=== PATIENT | female | born 1975 | race African-American/Black ===

== ENCOUNTER 2016-12-12 13:33 | Emergency (ER) | payer OTHER ==
[2016-12-12 13:37] VITALS: BP 138/81; PULSE 81; TEMP 98.2; BMI 26.6
--- NOTE | 2016-12-12 14:18 | PDOC ---
History of Present Illness - General History Source: Patient Exam Limitations: No Limitations - History of Present Illness Initial Comments: 12/12/16 14:24 Patient is a 41 year old female, who presents with a laceration to the left index finger s/p cutting meat and accidently cutting her finger. Pt reports initially her finger was numb, but now she feel some throbbing. She denies any fever, chills, or dizziness. Pt does not think she hit a bone with the knife. Allergies: Dexlansoprazole <Neelam Vega - Last Filed: 12/12/16 16:23> - General History Source: Patient Exam Limitations: No Limitations <Kaleigh Jean Baptiste - Last Filed: 12/12/16 17:26> - General Chief Complaint: Injury Stated Complaint: LACERATION Past History <Neelam Vega - Last Filed: 12/12/16 16:23> - Past Medical History Anemia: No Asthma: No Cancer: No Cardiac Disorders: No CVA: No COPD: No CHF: No GI Disorders: Yes (abd pain) Disorders: No HTN: No Hypercholesterolemia: No Liver Disease: No Seizures: No Thyroid Disease: No - Surgical History Abdominal Surgery: No Appendectomy: No Cardiac Surgery: No Cholecystectomy: No Lung Surgery: No Neurologic Surgery: No Orthopedic Surgery: No - Psycho/Social/Smoking Cessation Hx Suicidal Ideation: No Smoking History: Never smoked Information on smoking cessation initiated: No Hx Alcohol Use: No Drug/Substance Use Hx: No Substance Use Type: None <Kaleigh Jean Baptiste - Last Filed: 12/12/16 17:26> - Past Medical History Allergies/Adverse Reactions: Allergies Allergy/AdvReac Type Severity Reaction Status Date / Time dexlansoprazole Allergy Mild Rash Verified 12/12/16 13:37 [From Dexilant] Home Medications: Ambulatory Orders Folic Acid - 1 tab PO DAILY 05/20/12 Multivitamin [Multi-Day Vitamins] 1 each PO DAILY 05/20/12 Brimonidine Tartrate [Alphagan 0.15% -] 1 ml OD TID 05/21/12 Cyclopentolate 1% Eye Drops [Cyclogyl 1% Eye Drops -] 2 drop OD TID 05/21/12 Dorzolamide HCl [Trusopt 2% -] 1 drop OD BID 05/21/12 Latanoprost 0.005% Eye Drops [Xalatan 0.005% Eye Drops -] 1 drop OU HS 05/21/12 Review of Systems - Review of Systems Able to Perform ROS?: Yes Integumentary: Yes: Symptoms Reported, See HPI, Other (laceration to left index finger) Neurological: Yes: Symptoms reported, See HPI, Other (Some numbness and throbbing s/p laceration to left index finger) All Other Systems: Reviewed and Negative <Neelam Vega - Last Filed: 12/12/16 16:23> *Physical Exam - Vital Signs Last Vital Signs Temp Pulse Resp BP Pulse Ox 98.2 F 81 18 138/81 98 12/12/16 13:35 12/12/16 13:35 12/12/16 13:35 12/12/16 13:35 12/12/16 13:35 - Physical Exam Integumentary: positive: Other (2 cm laceration to left 2nd finger.). negative : Erythema, Mottled, Pale, Cold, Swelling, Ecchymosis <Neelam Vega - Last Filed: 12/12/16 16:23> - Vital Signs Last Vital Signs Temp Pulse Resp BP Pulse Ox 98.2 F 81 18 138/81 98 12/12/16 13:35 12/12/16 13:35 12/12/16 13:35 12/12/16 13:35 12/12/16 13:35 - Physical Exam General Appearance: Yes: Nourished, Appropriately Dressed, Apparent Distress, Mild Distress Extremity: positive: Normal Capillary Refill, Normal Range of Motion (strong flexion and extension against resistance, sensation intact distal to injury. Has a 2 cm laceration one half circumferentially distal phalanx of left second digit.), Tender. negative: Normal Inspection Integumentary: positive: Normal Color Neurologic: positive: real estate administrator II-XII NML intact, Fully Oriented, Alert, Normal Mood/ Affect, Normal Response, Motor Strength 5/5 <Kaleigh Jean Baptiste - Last Filed: 12/12/16 17:26> Procedures - Laceration/Wound Repair Left 2nd digit Wound Explored: clean, no foreign body present Wound Repaired With: Sutures Suture Size/Type: 5:0 Number of Sutures: 9 (digital block) Sterile Dressing Applied: Yes Splint Applied: Yes <Neelam Vega - Last Filed: 12/12/16 16:23> ED Treatment Course - RADIOLOGY Radiology Studies Ordered: Category Date Time Status FINGER(S) LEFT [RAD] Stat Radiology 12/12/16 14:17 Ordered <Kaleigh Jean Baptiste - Last Filed: 12/12/16 17:26> Progress Note - Progress Note Progress Note: X-ray negative for bone involvement with laceration. Finger laceration, repaired this/diphtheria/pertussis booster updated today <Kaleigh Jean Baptiste - Last Filed: 12/12/16 17:26> *DC/Admit/Observation/Transfer - Attestations Scribe Attestion: 12/12/16 14:28 Documentation prepared by Neelam Vega, acting as center medical director for Kaleigh Jean Baptiste NP <Neelam Vega - Last Filed: 12/12/16 16:23> - Discharge Dispostion Admit: No <Kaleigh Jean Baptiste - Last Filed: 12/12/16 17:26> Diagnosis at time of Disposition: Finger laceration Qualifiers: Encounter type: initial encounter Finger: index finger Damage to nail status: without damage Foreign body presence: without foreign body Laterality: left Qualified Code(s): S61.211A - Laceration without foreign body of left index finger without damage to nail, initial encounter - Discharge Dispostion Disposition: HOME Condition at time of disposition: Stable - Referrals Referrals: Jeremi Omalley MD [Primary Care Provider] - - Patient Instructions Additional Instructions: Rest, elevate, avoid strenuous activity or heavy lifting until sutures are removed Leave dressing on for the next 24 hours, Then may remove dressing gently and wash area with soap and water. Reapply bacitracin ointment and dressing daily for the next 5 days On day #6 keep the wound protected and cover as needed until sutures are removed allowing wound to start to dry May use Tylenol or Motrin for pain relief Suture removal in : 7-10 Days Tetanus/diphtheria/pertussis booster was updated today Use 1/2-1 tablet of Percocet every 6 hours as needed for severe pain otherwise Motrin will resolve mild to moderate pain
[2016-12-12] MEDS ORDERED: OXYCODONE/APAP 5/325MG COMBO TABLET ONE (14:53)
[2016-12-12] MEDS ORDERED: OXYCODONE/APAP 5/325MG COMBO TABLET PO ONE (14:56)
[2016-12-12] MEDS ORDERED: DIPHTH,PERTUSS(ACELL),TET 0.5 ML DISP.SYRIN IM ONE (14:56)
== END 2016-12-12 15:02 | disposition home or self-care (01) ==
LOC: JERFT 13:33
PROC: 0HQGXZZ Repair Left Hand Skin, External Approach (ICD-10-PCS; principal; 2016-12-12)
PROC: 2W3KX1Z Immobilization of Left Finger using Splint (ICD-10-PCS; 2016-12-12)
PROC: 3E0234Z Introduction of Serum, Toxoid and Vaccine into Muscle, Percutaneous Approach (ICD-10-PCS; 2016-12-12)
DX: S61.211A Laceration without foreign body of left index finger without damage to nail, initial encounter (principal); W26.0XXA Contact with knife, initial encounter; Y93.G1 Activity, food preparation and clean up; Y92.030 Kitchen in apartment as the place of occurrence of the external cause
CPT/HCPCS: 12001-25; 29130; 73140-TC-LT; 90471; 90715; 99281-25

== ENCOUNTER 2018-03-19 09:29 | Day surgery (SDC) | payer OTHER ==
[2018-03-19 10:25] VITALS: BMI 27.1
[2018-03-19 11:29] VITALS: TEMP 97.5
[2018-03-19 12:06] VITALS: BP 115/77; PULSE 62
--- NOTE | 2018-03-22 14:25 | PATH ---
Surgical Pathology Report Patient Name: ABRAHAM PAGAN [facility]. Rec. #: [id number] /Age/Gender: 1975 (Age: 42) / F Account: [id number] Location: U-ENDOSCOPY Taken: 03/19/2018 Received: 03/19/2018 Reported: 03/20/2018 Physicians: Brain Russo D.O. Specimen(s) Received A: BX ANTRUM B: BX BODY AND ANGULARIS C: BX GASTRIC POLYP Clinical History Epigastric pain Postoperative diagnosis: Gastritis, gastric polyp Final Diagnosis A. STOMACH, ANTRUM, BIOPSY: GASTRIC ANTRAL MUCOSA WITH MILD CHRONIC GASTRITIS. IMMUNOHISTOCHEMICAL STAIN FOR H. PYLORI IS NEGATIVE. B. STOMACH, BODY AND ANGULARIS, BIOPSY: GASTRIC BODY MUCOSA WITH MILD CHRONIC GASTRITIS. IMMUNOHISTOCHEMICAL STAIN FOR H. PYLORI IS NEGATIVE. C. GASTRIC POLYP, BIOPSY: FUNDIC GLAND POLYP. IMMUNOHISTOCHEMICAL STAIN FOR H. PYLORI IS NEGATIVE. Electronically Signed Roxanne Elder M.D. Gross Description A. Received in formalin, labeled "biopsy antrum" are 2 samano, irregular portions of soft tissue measuring 0.3 and 0.4 cm. in greatest dimension. The specimens are submitted in toto in one cassette. B. Received in formalin, labeled "body and angularis" is a samano, irregular portion of soft tissue measuring 0.7 cm. in greatest dimension. The specimen is submitted in toto in one cassette. C. Received in formalin, labeled "gastric polyp" are 3 samano, irregular portions of soft tissue averaging 0.2 cm. in greatest dimension. The specimens are submitted in toto in one cassette. /03/19/2018 saudi03/19/2018
== END 2018-03-19 12:04 | disposition home or self-care (01) ==
LOC: JASU-ENDO 09:29
PROVIDERS: ATTEND Internal Medicine Gastroenterology
PROC: 0DB68ZX Excision of Stomach, Via Natural or Artificial Opening Endoscopic, Diagnostic (ICD-10-PCS; principal; 2018-03-19 10:30)
DX: K29.70 Gastritis, unspecified, without bleeding (principal)
CPT/HCPCS: 84703; 88305-TC; 88342-TC

== ENCOUNTER 2018-07-05 06:02 | Day surgery (SDC) | payer OTHER ==
[2018-07-04 10:48] VITALS: BMI 25.4
[2018-07-05] MEDS ORDERED: BUPIVACAINE HCL/PF 0.5% (5MG/ML) 10 ML VIAL ONE (07:53)
--- NOTE | 2018-07-05 08:05 | HP ---
History & Physical Update - History History: No Change - Physical Physical: No Change - Assessment Assessment: No Change - Plan Plan: No Change (No new complaints or medications.)
[2018-07-05] MEDS ORDERED: ceFAZolin SODIUM 1 GM VIAL ONE (08:26)
[2018-07-05] MEDS ORDERED: ROCURONIUM BROMIDE 50 MG/5 ML VIAL ONE (08:26)
[2018-07-05] MEDS ORDERED: LIDOCAINE HCL/PF 2% SDV 5ML VIAL ONE (08:26)
[2018-07-05] MEDS ORDERED: fentaNYL CITRATE 250 MCG/5 ML VIAL ONE (08:26)
[2018-07-05] MEDS ORDERED: PROPOFOL 20 ML ONE (08:27)
[2018-07-05] MEDS ORDERED: BUPIVACAINE HCL/PF 0.5% (5MG/ML) 10 ML VIAL IJ ONE (08:52)
[2018-07-05] MEDS ORDERED: GLYCOPYRROLATE 0.2 MG/1 ML VIAL ONE ×2 (09:26)
[2018-07-05] MEDS ORDERED: NEOSTIGMINE METHYLSULFATE 0.5 MG/ML - 10 ML MDV ONE (09:26)
[2018-07-05] MEDS ORDERED: MIDAZOLAM HCL 2 MG/2 ML SINGLE DOSE VIAL ONE (09:29)
[2018-07-05] MEDS ORDERED: PROMETHAZINE HCL 25 MG/1 ML VIAL IVPB PRN (09:40)
[2018-07-05] MEDS ORDERED: oxyCODONE HCL 5 MG TABLET PO PRN (09:40)
[2018-07-05] MEDS ORDERED: ONDANSETRON 4 MG/2 ML VIAL IVPUSH PRN (09:40)
[2018-07-05] MEDS ORDERED: LACTATED RINGERS SOLUTION 1,000 ML IV SCH (09:45)
--- NOTE | 2018-07-05 09:48 | OP ---
Operative Note - Note: Operative Date: 07/05/18 Pre-Operative Diagnosis: Cholelithiasis Operation: Lap Veronica Post-Operative Diagnosis: Same as Pre-op Surgeon: Hayder Fernández Etcher Aircraft: Kvng Best Anesthesiologist/SEARCH PLANNER: Rustam Birmingham Anesthesia: General Specimens Removed: Gallbladder Estimated Blood Loss (mls): 10 Fluid Volume Replaced (mls): 600 Operative Report Dictated: Yes
--- NOTE | 2018-07-05 09:48 | OP ---
Operative Note - Note: Operative Date: 07/05/18 Pre-Operative Diagnosis: Chronic cholecystitis with cholelithiasis Operation: Laparoscopic cholecystectomy Findings: gallbladder with 1.5 cm stone Post-Operative Diagnosis: Same as Pre-op Surgeon: Hayder Fernández Fabric Awning Repairer: Kvng Best Anesthesia: General Specimens Removed: gallbladder Estimated Blood Loss (mls): 5 Operative Report Dictated: Yes
[2018-07-05] MEDS ORDERED: ACETAMINOPHEN 1000 MG/100 ML VIAL (NON FORMULARY) IVPB ONE (09:50)
--- NOTE | 2018-07-05 10:41 | OP ---
DATE OF OPERATION: 07/05/2018 PROCEDURE: Laparoscopic cholecystectomy. PREOPERATIVE DIAGNOSIS: Chronic cholecystitis with cholelithiasis. POSTOPERATIVE DIAGNOSIS: Chronic cholecystitis with cholelithiasis. SURGEON: Hayder Fernández MD ASSISTANT STORE MANAGER OPERATIONS: ROSA Nelson ANESTHESIA: General endotracheal. FINDINGS ON PROCEDURE: This is a 43-year-old female who presents with chronic right upper quadrant pain radiating to the back aggravated by fatty meals. A preoperative ultrasound revealed a 1.5 cm gallstone and a normal sized common duct. Patient was then advised elective cholecystectomy and consent was obtained after discussing the risks, benefits, and alternatives of the procedure. DESCRIPTION OF PROCEDURE: Patient was brought to the operating room and placed in the supine position. General endotracheal anesthesia was administered. The abdomen was prepped and draped in the usual sterile fashion. Using 0.5% Marcaine, local anesthesia was then administered to the proposed incision sites. The peritoneal cavity was entered using the Optiview technique via a 5-mm umbilical incision. Using the 5-mm zero-degree scope inserted in the 5-mm optical port, pneumoperitoneum was established. The peritoneal cavity was carefully inspected and was noted to be free of inadvertent injury. Patient was placed in the reverse Trendelenburg, left side down position. An 11-mm port was inserted at the subxiphoid region, and 2 other 5-mm ports were inserted at the right subcostal region at the midclavicular and anterior axillary lines. The gallbladder was grasped at the fundus and retracted superiorly, and a flimsy omental adhesion was taken down using the hook dissector to expose the infundibulum. This area was grasped and retracted inferolaterally to expose the triangle of Calot. The visceral peritoneum covering the triangle was scored using the hook dissector all the way to the gallbladder bed on both sides of the organ. A window was created between the gallbladder bed, the liver, and behind the cystic artery to create the critical view of safety. The cystic duct and cystic artery were then carefully isolated using the hook dissector combined with the [place] dissector. The cystic duct was initially clipped at 3 points followed by transection leaving 2 clips at each cystic duct stump. The cystic artery, which was noted to be feeding to the lymph node of Calot was also clipped at 3 points followed by transection leaving 2 clips at the cystic artery stump. The gallbladder was resected from its bed in antegrade fashion using the hook dissector connected to monopolar cautery. After this was compled, the gallbladder was placed in an Endobag and extracted via the subxiphoid incision. Bleeding from the subxiphoid port was noted, and this was controlled with hook dissector connected to monopolar cautery. The small amount of blood in the Alvarez's pouch and the right hepatic gutter was suctioned. The pneumoperitoneum was evacuated, and the ports were removed. The wounds were closed with subcuticular Biosyn 4-0 sutures reinforced with Dermabond. Patient was successfully extubated and transferred to the postanesthesia care unit in satisfactory condition. Estimated blood loss was about 5 mL. Wound class clean contaminated. The patient received 2 g of Ancef prior to the start of the procedure. Lyric [id number] MTDD
[2018-07-05 12:14] VITALS: BP 109/68; PULSE 61; TEMP 97.8
--- NOTE | 2018-07-08 17:01 | PATH ---
Surgical Pathology Report Patient Name: ABRAHAM PAGAN [facility]. Rec. #: [id number] /Age/Gender: 1975 (Age: 43) / F Account: [id number] Location: [facility] Taken: 07/05/2018 Received: 07/05/2018 Reported: 07/08/2018 Physicians: Hayder Fernández M.D. Specimen(s) Received GALLBLADDER Clinical History Chronic cholecystitis Final Diagnosis GALLBLADDER, LAPAROSCOPIC CHOLECYSTECTOMY: CHRONIC CHOLECYSTITIS WITH CHOLELITHIASIS AND CHOLESTEROLOSIS. Electronically Signed Roxanne Elder M.D. Gross Description Received in formalin, labeled "gallbladder," is a 7.2 x 2.4 x 2.3 cm. gallbladder with a 0.2 cm. in length portion of cystic duct attached. The outer surface is samano-kim and varies from smooth to shaggy. The lumen contains green, tenacious bile as well as a single 1.7 cm in greatest dimension green, ovoid cholelith. The mucosa is green and velvety with gold cholesterol stippling. The wall of the gallbladder measures 0.1 cm. in thickness. German Professor sections are submitted in one cassette. /07/05/201807/05/2018
== END 2018-07-05 12:00 | disposition home or self-care (01) ==
LOC: JASU-SURG 06:02
PROVIDERS: ATTEND Surgery
PROC: 0FT44ZZ Resection of Gallbladder, Percutaneous Endoscopic Approach (ICD-10-PCS; principal; 2018-07-05 08:00)
DX: K80.10 Calculus of gallbladder with chronic cholecystitis without obstruction (principal)
CPT/HCPCS: 84703; 88304-TC; 94760; J0131

== ENCOUNTER 2021-09-16 11:04 | Emergency (ER) | payer OTHER ==
[2021-09-16 11:17] VITALS: BP 116/81; PULSE 73; TEMP 97.8; BMI 26.1
== END 2021-09-16 12:49 | disposition home or self-care (01) ==
LOC: JERFT 11:04
DX: H60.332 Swimmer's ear, left ear (principal)
CPT/HCPCS: 99283-25

== ENCOUNTER 2022-03-12 18:08 | Emergency (ER) | payer OTHER ==
[2022-03-12 18:22] VITALS: BP 119/80; PULSE 83; RESP 18; TEMP 98; BMI 26.3
[2022-03-12] MEDS ORDERED: methylPREDNISolone NA SUCC 125 MG/2 ML VIAL IVPUSH ONE (18:54)
[2022-03-12] MEDS ORDERED: FAMOTIDINE 20 MG/50 ML IVPB 20 MG/50 ML MG IVPB ONE ×2 (18:54→19:06)
[2022-03-12] MEDS ORDERED: SODIUM CHLORIDE 1,000 ML IV STA (18:55)
[2022-03-12] MEDS ORDERED: methylPREDNISolone NA SUCC 125 MG/2 ML VIAL ONE (19:11)
== END 2022-03-12 22:59 | disposition home or self-care (01) ==
LOC: JER 18:08 → JERFT 18:08
PROC: 3E033GC Introduction of Other Therapeutic Substance into Peripheral Vein, Percutaneous Approach (ICD-10-PCS; principal; 2022-03-12)
PROC: 3E033GC Introduction of Other Therapeutic Substance into Peripheral Vein, Percutaneous Approach (ICD-10-PCS; 2022-03-12)
PROC: 3E0337Z Introduction of Electrolytic and Water Balance Substance into Peripheral Vein, Percutaneous Approach (ICD-10-PCS; 2022-03-12)
DX: T78.40XA Allergy, unspecified, initial encounter (principal)
CPT/HCPCS: 99284-25

== ENCOUNTER 2023-03-21 10:38 | Emergency (ER) | payer OTHER ==
[2023-03-21 10:47] VITALS: BP 128/71; PULSE 86; RESP 16; TEMP 98.2; BMI 26.6
[2023-03-21] MEDS ORDERED: ACETAMINOPHEN 500 MG TABLET (FP) PO ONE (12:24)
[2023-03-21] MEDS ORDERED: DEXAMETHASONE SOD PHOSPHATE 10 MG/1 ML VIAL PO ONE (12:24)
[2023-03-21] MEDS ORDERED: ACETAMINOPHEN 500 MG TABLET (FP) ONE (12:27)
[2023-03-21] MEDS ORDERED: DEXAMETHASONE SOD PHOSPHATE 10 MG/1 ML VIAL ONE (12:28)
== END 2023-03-21 13:03 | disposition home or self-care (01) ==
LOC: JERFT 10:38
DX: H92.02 Otalgia, left ear (principal); M54.2 Cervicalgia
CPT/HCPCS: 99283-25; J1100

== ENCOUNTER 2023-12-21 21:59 | Emergency (ER) | payer OTHER ==
[2023-12-21 22:10] VITALS: BP 122/78; PULSE 83; RESP 18; TEMP 99.3; BMI 26.1
[2023-12-21 23:26] LABS: BASO % 1.3 % (0-2.0); EOS % 6.2 % (0-4.5); HEMATOCRIT 37.6 % (32.4-45.2); MCH 32.3 pg (25.7-33.7); MCHC 34.5 g/dl (32.0-36.0); MEAN CELL VOLUME 93.8 fl (80-96); MEAN PLT VOLUME 7.1 fl (7.5-11.1); MONO % 8.1 % (3.8-10.2); NEUT % 58.4 % (42.8-82.8); PLATELET COUNT 428 10^3/uL (134-434); RBC 4.01 M/mm3 (3.60-5.2); RDW 15.9 % (11.6-15.6); WHITE BLOOD COUNT 5.4 K/mm3 (4.0-10.0)
[2023-12-22 00:03] LABS: POTASSIUM 5.1 mmol/L (3.5-5.1)
[2023-12-22 00:04] LABS: CALCIUM 9.6 mg/dL (8.5-10.1)
[2023-12-22 00:05] LABS: BLOOD UREA NITROGEN 7.3 mg/dL (7-18)
[2023-12-22 00:08] LABS: CREATININE 0.9 mg/dL (0.55-1.3)
== END 2023-12-22 06:57 | disposition left against medical advice (07) ==
LOC: JER 21:59
DX: R09.A2 Foreign body sensation, throat (principal)
CPT/HCPCS: 36415; 70491-TC; 80048; 84703; 85025; 99285-25; Q9967